=== PATIENT | male | born 1940 | race Caucasian/White ===

== ENCOUNTER → 2016-10-27 | Outpatient (CLI) | payer MEDICARE, OTHER ==
[~2016-10-27] MED LIST: ALLOPURINOL300 MG PO; BETHANECHOL CHL10 MG PO; BISOPROLOL10 MG PO; CITALOPRAM20 MG PO; COUMADIN3 M1 PO; COUMADIN4 MG PO; CYCLOPHOSPHAMID50 MG PO; DEXAMETHASONE4 MG PO; DIGOXIN0.125 MG PO; GEMFIBROZIL600 MG PO; GOLYTELY 44000 ML/BO PO; METFORMIN HCL850 MG PO; MIDODRINE HCL5 MG PO; MORPHINE SULFAT15 MG PO; MORPHINE SULFAT30 M3 PO; POTASSIUM CHLO20 ME2 PO; VICODIN 7.5/501 EACH PO; WARFARIN SODIUM6 MG PO; ZOCOR20 MG PO; ZOFRAN4 MG PO
== END ==
LOC: RAD 08:00
DX: M79.601 Pain in right arm (principal); M54.12 Radiculopathy, cervical region